=== PATIENT | male | born 1990 | race Caucasian/White ===

== ENCOUNTER 2017-05-25 20:30 | Emergency (ER) | payer MEDICAID ==
[~2017-05-25] VITALS: Ht 172.7 cm; Wt 97.4 kg
[2017-05-25 21:01] VITALS: BP 107/86
[2017-05-25] MEDS ORDERED: ALBU8HFA PO (21:07)
[2017-05-25] MEDS ORDERED: AZIT-57 PO (21:07)
== END 2017-05-25 21:20 | disposition home or self-care (01) ==
LOC: ER 20:32
DX: J40 Bronchitis, not specified as acute or chronic (principal); J45.909 Unspecified asthma, uncomplicated; F17.200 Nicotine dependence, unspecified, uncomplicated
CPT/HCPCS: 99283

== ENCOUNTER 2019-02-25 06:02 | Emergency (ER) | payer MEDICAID, OTHER ==
[~2019-02-25] VITALS: Ht 172.7 cm; Wt 136.4 kg
[2019-02-25 06:06] VITALS: BP 130/94
== END 2019-02-25 07:09 | disposition home or self-care (01) ==
LOC: ER 06:03
DX: S29.012A Strain of muscle and tendon of back wall of thorax, initial encounter (principal); E66.9 Obesity, unspecified; J45.909 Unspecified asthma, uncomplicated; F15.90 Other stimulant use, unspecified, uncomplicated; F11.90 Opioid use, unspecified, uncomplicated; X50.0XXA Overexertion from strenuous movement or load, initial encounter; Y93.89 Activity, other specified; Y92.89 Other specified places as the place of occurrence of the external cause; Y99.9 Unspecified external cause status
CPT/HCPCS: 99281

== ENCOUNTER → 2019-03-26 | Emergency (ER) | payer OTHER ==
[~2019-03-26] VITALS: Ht 170.2 cm; Wt 136.3 kg
[2019-03-26 02:35] VITALS: BP 119/99
--- NOTE | 2019-03-26 03:07 | NUR ---
Pt. not in room. Per manager nursing, pt. requested to go out to the lobby to "talk with evelyne." Pt. not seen afterwards. Call out made 2x without response.
== END | disposition left against medical advice (07) ==
LOC: ER 00:27
DX: R05 Cough (principal); Z53.21 Procedure and treatment not carried out due to patient leaving prior to being seen by health care provider
CPT/HCPCS: 82948; 99281

== ENCOUNTER 2024-03-30 08:29 | Emergency (ER) | payer MEDICAID ==
[~2024-03-30] VITALS: Ht 170.2 cm; Wt 144.4 kg
[2024-03-30 08:30] VITALS: BP 133/90; PULSE 85; RESP 16; O2SAT 98
[2024-03-30] MEDS ORDERED: IBUP-1986 PO (09:25)
[2024-03-30] MEDS ORDERED: AMOX-117 PO (09:25)
[2024-03-30 09:32] VITALS: TEMP 98
== END 2024-03-30 09:33 | disposition home or self-care (01) ==
LOC: ER 08:29
DX: K08.89 Other specified disorders of teeth and supporting structures (principal); J45.909 Unspecified asthma, uncomplicated; F12.90 Cannabis use, unspecified, uncomplicated; F15.90 Other stimulant use, unspecified, uncomplicated
CPT/HCPCS: 99283

== ENCOUNTER 2024-08-17 10:57 | Outpatient (CLI) | payer MEDICAID ==
[~2024-08-17 10:57] MED LIST: IBUP-1986 PO
--- NOTE | 2024-08-17 11:59 | RADIOLOGY REPORT ---
Exam: US ULTRASOUND OF ABDOMEN Date: 08/17/2024 11:07 AM Clinical History: UMBILICAL HERNIA Comparison: None Technique: Targeted sonographic evaluation of the soft tissues of the umbilical region was obtained utilizing gr ayscale and color Doppler imaging. Findings/Impression: Prominent fat is visualized in the soft tissues of the umbilical region. Evaluation is limited for h ernia. Further evaluation with CT as clinically indicated.
== END 2024-08-17 23:59 | disposition home or self-care (01) ==
LOC: RAD 10:57
PROVIDERS: ATTEND Family Medicine
DX: K42.9 Umbilical hernia without obstruction or gangrene (principal)
CPT/HCPCS: 76705